=== PATIENT | male | born 1995 | race Caucasian/White ===

== ENCOUNTER 2020-05-10 13:54 | Emergency (ER) | payer OTHER, SELFPAY ==
--- NOTE | 2020-05-10 14:01 | ED.MALEGU ---
HPI - Male Genitourinary General Chief complaint: Urogenital-Male Stated complaint: POSSIBLE BLADDER INFECTION Time Seen by Provider: 05/10/20 14:10 Source: patient and RN notes reviewed Mode of arrival: ambulatory Limitations: no limitations History of Present Illness HPI Narrative: 24 old male presents with concern for possible urinary tract infection, being unable to urinate. Reports he has not urinated since last night. He reports he consulted with his primary care doctor 6 days ago who ordered a urinalysis, he reported the urinalysis was normal and his doctor did not take any further action. He reports for 12 days he had burning at the tip of his penis when he would urinate, itching at the tip of his penis with urination. He reports since Monday he has been having difficulty emptying his bladder. Reports he has not urinated since last night, which is the longest he has gone without urinating. He denies fever, malaise, body aches, chills, bowel problems, hematuria, frequency, urgency. Denies concern for exposure to STIs. Denies scrotal pain, scrotal redness, scrotal swelling. Denies abnormal penile discharge MD Complaint: dysuria and other (Difficulty urinating) Related Data Home Medications Medication Instructions Recorded Confirmed amlodipine 5 mg PO DAILY 05/10/20 05/10/20 levothyroxine [Euthyrox] 50 mcg PO DAILY 05/10/20 05/10/20 valsartan-hydrochlorothiazide 1 tablet PO DAILY 05/10/20 05/10/20 Allergies Allergy/AdvReac Type Severity Reaction Status Date / Time No Known Allergies Verified 05/10/20 14:02 Review of Systems Review of Systems: Narrative: CONSTITUTIONAL: Denies malaise, chills, sweats, or fever. CARDIOVASCULAR: Denies chest pain, current palpitations RESPIRATORY: Denies cough or dyspnea. GASTROINTESTINAL: Denies abdominal pain, nausea, vomiting, diarrhea GENITOURINARY: Denies frequency, urgency, hematuria. Reports the tip of his penis castro when he urinates, reports being unable to urinate since last night SKIN: Reports irritation of the tip of his penis MUSCULOSKELETAL: Denies back pain or myalgia. All systems reviewed & are unremarkable except as noted in HPI and below PMFSH Social History Social History Alcohol intake: never Comments At time of signature, agree with nursing past medical, surgical, social and family history. There is no relevant family history pertinent to the presenting complaint Exam Narrative: Exam Narrative: GENERAL: Well-appearing, well-nourished, and in no acute distress. HEAD: Normocephalic. EYES: PERRLA, conjunctivae clear. NECK: Supple. No lymphadenopathy CHEST: Clear to auscultation. No respiratory distress. HEART: Regular rate and rhythm. No murmur heard. Normal peripheral pulses. ABDOMEN: Soft, nontender upon palpation, nondistended, normal active bowel sounds, no palpable or pulsatile masses, no guarding. No CVA tenderness SKIN: Warm, dry, no rash. NEURO: Alert and oriented x3. PSYCH: Normal mood and affect : General: Yes no CVA tenderness Male General Exam: Yes normal external exam Penis: Yes normal penis and Yes circumcised Meatus: Erythema at meatus Scrotum: scrotum normal Testes: Testes normal Course Course Emergency Course: Discussed with patient options for treatment, including transfer to the emergency room, or attempting straight catheterization to empty bladder and obtain urine sample. Patient consents to straight cath in this clinic. Patient is aware of diagnosis, understands and agrees to treatment plan. Anticipatory guidance given. Patient agrees to follow-up as directed and is aware of reasons to seek care at the emergency department. Portions of this record may have been created with voice recognition software Reevaluation(s) Reevaluation #1: Straight cath successful, discussed with patient negative urinalysis and need to follow-up with his primary care doctor tomorrow. Discussed with patient importance of going to the emergency room i
[2020-05-10 14:07] VITALS: BP 142/84; PULSE 88; RESP 16; TEMP 37.4; O2SAT 99
== END 2020-05-10 14:58 | disposition home or self-care (01) ==
PROVIDERS: Emergency Provider Nurse Practitioner; PCP Family Medicine
DX: R39.198 Other difficulties with micturition (principal); N48.89 Other specified disorders of penis; E78.00 Pure hypercholesterolemia, unspecified; I10 Essential (primary) hypertension
CPT/HCPCS: 51701; 81003; 87086; 99213; G0463

== ENCOUNTER 2020-05-12 15:31 | Emergency (ER) | payer OTHER, SELFPAY ==
[2020-05-12 15:42] VITALS: BP 147/73; PULSE 86; RESP 18; TEMP 36.8; O2SAT 98
[2020-05-12 16:38] LABS: Basophils Absolute Auto 0.1 K/mm3 (0.0-0.1); Basophils Percent Auto 0.5 % (0.2-1.2); Eosinophils Absolute Auto 0.1 K/mm3 (0-0.3); Eosinophils Percent Auto 0.7 % (0-4.4); Hematocrit 39.9 % (42.0-52.0); Hemoglobin 13.3 g/dL (14.0-18.0); Immature Granulocyte Absolute 0.02 K/mm3 (0.00-0.031); Immature Granulocyte Percent A 0.2 % (0-0.5); Immature Platelet Fraction Pct 8.4 % (0.9-11.2); Lymphocytes Absolute Auto 3.39 K/mm3 (0.9-3.2); Lymphocytes Percent Auto 35.9 % (18.3-44.2); Mean Corpuscular HGB Conc 33.3 g/dl (32-36); Mean Corpuscular Hemoglobin 26.9 pg (26-34); Mean Corpuscular Volume 80.8 fl (80-100); Mean Platelet Volume 11.7 fl (7.4-10.4); Monocytes Absolute Auto 0.5 K/mm3 (0.1-0.6); Monocytes Percent Auto 4.9 % (2.6-8.5); Neutrophils Absolute Auto 5.4 K/mm3 (1.3-6.7); Neutrophils Percent Auto 57.8 % (45.5-73.1); Platelet Count Result 177 k/mm3 (150-375); Red Blood Count 4.94 M/mm3 (4.6-6.20); Red Cell Distribution Width 12.8 % (11.5-14.5); White Blood Count 9.4 K/mm3 (4.5-10.0)
[2020-05-12 16:45] LABS: Alanine Aminotransferase 41 U/L (4-50); Albumin Level 4.5 g/dL (3.5-5.1); Alkaline Phosphatase 114 U/L (38-126); Anion Gap 11 mmol/L (8-16); Aspartate Amino Transferase 28 U/L (17-59); Bilirubin,Total 0.5 mg/dL (0.2-1.3); Blood Urea Nitrogen 16 mg/dL (9-20); Calcium 9.2 mg/dL (8.4-10.2); Carbon Dioxide 27 mmol/L (22-30); Chloride 96 mmol/L (98-107); Estimated Glomerular Filt Rate > 60; Glucose 99 mg/dL (75-110); Potassium 3.2 mmol/L (3.4-5.0); Sodium 134 mmol/L (137-145)
--- NOTE | 2020-05-12 16:53 | ED.ABDPAIN ---
HPI - Abdominal Pain General Chief Complaint: Urogenital-Male Stated Complaint: unable to urinate Time Seen by Provider: 05/12/20 15:44 Source: patient Mode of arrival: ambulatory Limitations: no limitations History of Present Illness HPI narrative: Patient is a 24-year-old male who presents to emergency department for evaluation of dysuria that is been present now off and on for the last week and worsened in the last couple of days was seen at urgent care had Escalera catheter placed which was removed after taking out a liter. Patient was then seen by primary care who referred the patient to the emergency department. Patient notes aching pain in the suprapubic region. Patient denies illness STD concern or similar occurrence in the past. Related Data Home Medications Medication Instructions Recorded Confirmed amlodipine 5 mg PO DAILY 05/10/20 05/10/20 levothyroxine [Euthyrox] 50 mcg PO DAILY 05/10/20 05/10/20 valsartan-hydrochlorothiazide 1 tablet PO DAILY 05/10/20 05/10/20 Allergies Allergy/AdvReac Type Severity Reaction Status Date / Time No Known Allergies Verified 05/10/20 14:02 Review of Systems Review of Systems: All systems reviewed & are unremarkable except as noted in HPI and below PMFSH Past Medical History Medical History Hypertension Surgical History Surgical History History of orthopedic surgery Social History Social History Smoking status: Never smoker Alcohol intake: never Exam Narrative: Exam Narrative: GENERAL: Well-appearing, well-nourished, and in no acute distress. HEAD: Normocephalic, atraumatic. EYES: PERRLA and EOMI. ENT: Nares clear, no rhinorrhea or epistaxis. Mucous membranes moist. CHEST: Clear to auscultation. No respiratory distress. No wheezes rales or rhonchi HEART: Regular rate and rhythm. No murmur heard. Normal peripheral pulses. ABDOMEN: Soft, suprapubic tenderness to palpation, nondistended EXTREMITIES: Normal range of motion. No edema. SKIN: Warm, dry, no rash. NEURO: No focal deficits. Alert and oriented x3. Cranial nerves II through XII grossly intact PSYCH: Normal mood and affect. Course Course Emergency Course: Patient in the room aware of case findings treatment plan and diagnosis agreeing to follow-up as directed with urology Escalera catheter was placed patient in retention Vital Signs Vital signs: Vital Signs Temperature 98.3 F 05/12/20 15:42 Pulse Rate 86 05/12/20 15:42 Respiratory Rate 18 05/12/20 15:42 Blood Pressure 147/73 H 05/12/20 15:42 Pulse Oximetry 98 05/12/20 15:42 Temperature 98.3 F 05/12/20 15:42 Pulse Rate 86 05/12/20 15:42 Respiratory Rate 18 05/12/20 15:42 Blood Pressure 147/73 H 05/12/20 15:42 Pulse Oximetry 98 05/12/20 15:42 MDM - Abdominal Pain MDM Narrative Medical decision making narrative: Patient with acute urinary retention in the room in no distress had Escalera catheter placed will have follow-up with urology is afebrile nontoxic-appearing no distress and tolerating the Escalera catheter Lab Data Result diagrams: 05/12/20 16:22 05/12/20 16:22 Labs: Lab Results 05/12/20 05/12/20 05/12/20 Range/Units 16:22 16:22 16:41 WBC 9.4 (4.5-10.0) K/mm3 RBC 4.94 (4.6-6.20) M/mm3 Hgb 13.3 L (14.0-18.0) g/dL Hct 39.9 L (42.0-52.0) % MCV 80.8 (80-100) fl MCH 26.9 (26-34) pg MCHC 33.3 (32-36) g/dl RDW 12.8 (11.5-14.5) % Plt Count 177 (150-375) k/mm3 MPV 11.7 H (7.4-10.4) fl Immature Gran % (Auto) 0.2 (0-0.5) % Neut % (Auto) 57.8 (45.5-73.1) % Lymph % (Auto) 35.9 (18.3-44.2) % [place] % (Auto) 4.9 (2.6-8.5) % Eos % (Auto) 0.7 (0-4.4) % Baso % (Auto) 0.5 (0.2-1.2) % Lymph # (Auto) 3.39 H (0.9-3.2) K/mm3 [place] # (Auto)
[2020-05-12 16:54] LABS: Add Urine Microscopic? NO; Appearance Urine Clear (Clear); Bilirubin Urine Negative (Negative); Blood Urine Negative (Negative); Color Urine Yellow (Yellow); Glucose Urine UA Negative (Negative); Ketones Urine Negative (Negative); Leukocyte Esterase Ur Negative LEU/UL (Negative); Nitrate Urine Negative (Negative); Protein Urine Negative (Negative); Urobilinogen Urine Negative mg/dL (<2.0)
[2020-05-12 17:39] VITALS: BP 138/75; PULSE 78; RESP 16; O2SAT 100
== END 2020-05-12 17:40 | disposition home or self-care (01) ==
PROVIDERS: Emergency Medicine Emergency Medical Services; Emergency Provider Emergency Medicine; PCP Family Medicine
DX: R33.9 Retention of urine, unspecified (principal); I10 Essential (primary) hypertension
CPT/HCPCS: 36415; 51702; 80053; 81003; 85025; 85055; 87491; 87591; 99283

== ENCOUNTER 2021-08-26 20:24 | Emergency (ER) | payer OTHER, SELFPAY ==
--- NOTE | ~2021-08-26 | XR_ITS ---
XR lumbar spine 2-3V 08/26/2021 22:21 Indication: Back pain Procedure: 3 views lumbar spine Comparison: No prior studies for comparison. Findings: There is mild disc narrowing at L5-S1. Vertebral body heights are maintained. Pedicles are intact. Mild levocurvature of the lumbar spine. No evidence for spondylolysis or spondylolisthesis. N o acute fracture or traumatic malalignment. Impression: 1: Mild lower lumbar spondylosis with levoscoliosis. Reviewed, dictated and finalized at location A. ED OPERATOR Impression: 1: Mild lower lumbar spondylosis with levoscoliosis.
--- NOTE | ~2021-08-26 | CT_ITS ---
EXAMINATION: CT lumbar spine wo con DATE: 08/26/2021 23:33 INDICATION: Low back pain TECHNIQUE: Computed tomography (CT) of the lumbar spine was performed without intravenous contrast. T he dose-length product was 1364.66 mGy-cm. Automated exposure control and iterative reconstruction te chnique were employed. COMPARISON: Lumbar spine series dated 08/26/2021 FINDINGS: There is mild disc narrowing at L5-S1 with mild endplate hypertrophy. There is mild left ne ural foraminal encroachment at this level. There is mild annular disc bulging at L3-4 and L4-5 withou t significant spinal stenosis. Vertebral body heights are maintained. No acute fracture or traumatic malalignment. No evidence for spondylolysis or spondylolisthesis. No significant paraspinal soft tiss ue abnormality. IMPRESSION: 1. Mild lumbar spondylosis with left neural foraminal narrowing at L5-S1. Reviewed, dictated and finalized at location A. SHOVELER
[2021-08-26 20:29] VITALS: BP 143/82; PULSE 102; RESP 17; TEMP 36.7; O2SAT 98
[2021-08-26 20:50] VITALS: BP 143/82; PULSE 105; RESP 17; TEMP 36.7; O2SAT 98
--- NOTE | 2021-08-26 21:10 | ED.BACK ---
HPI - Back Pain/Injury General Chief Complaint: Back Pain/Injury Stated Complaint: back pain Time Seen by Provider: 08/26/21 21:09 Source: patient Mode of arrival: EMS Limitations: no limitations History of Present Illness HPI Narrative: Patient is a 25-year-old male with a history of hypertension, hypothyroidism, alopecia, chronic lumbar back pain, presenting for evaluation of acute worsening of lower back pain. Patient states that he stood up from a recliner this afternoon, felt his back gave out upon standing. Patient reports acute onset severe pain which is radiating down bilateral buttocks. He denies any leg weakness or numbness. No saddle anesthesia. No alteration in bowel or bladder function. No urinary or fecal incontinence. Patient has not been able to ambulate secondary to the pain. Pain is aching, throbbing in nature, exacerbated with movement. He denies any middle back or upper neck pain. Patient states in the past he has seen a spine surgeon who stated that they would not do any operation unless patient had changes in his bowel/bladder function. Patient has not undergone any recent physical therapy for his pain. Patient states typically the pain is not that severe. Patient denies any fever, chills, chest pain or abdominal pain. No history of IV drug use. In the past, the patient has taken tramadol with minimal improvement in his symptoms. Related Data Home Medications Medication Instructions Recorded Confirmed amlodipine 5 mg PO DAILY 05/10/20 05/10/20 levothyroxine [Euthyrox] 50 mcg PO DAILY 05/10/20 05/10/20 valsartan-hydrochlorothiazide 1 tablet PO DAILY 05/10/20 05/10/20 Allergies Allergy/AdvReac Type Severity Reaction Status Date / Time No Known Allergies Verified 05/10/20 14:02 Review of Systems Review of Systems: CONSTITUTIONAL: Denies fever CARDIOVASCULAR: Denies chest pain RESPIRATORY: Denies cough or dyspnea. GASTROINTESTINAL: Denies abdominal pain SKIN: Denies rash MUSCULOSKELETAL: Reports lower back pain NEUROLOGIC: Denies headache [facility] Past Medical History Medical History (Updated 08/27/21 @ 00:01 by Enma Madison MD) Hypertension Surgical History Surgical History History of orthopedic surgery Social History Social History Smoking status: Never smoker Alcohol intake: never Exam Narrative: GENERAL: Awake, alert, conversant HEAD: Normocephalic, atraumatic. EYES: PERRLA and EOMI. ENT: Nares clear, no rhinorrhea or epistaxis. Mucous membranes moist. NECK: Supple. CHEST: No respiratory distress, breathing even and non labored HEART: Tachycardic rate, sinus rhythm ABDOMEN:Non distended, non tender EXTREMITIES: No cervical midline or thoracic midline tenderness. Patient does have middle lumbar tenderness without step-offs or deformities. Positive lumbar paraspinal tenderness which reproduces pain. Positive straight leg raise test bilaterally. Intact distal sensation. No hyperreflexia. EHL/FHL intact and normal strength bilaterally. Bilateral lower extremity strength 5/5. SKIN: Warm, dry, no rash. NEURO:No focal deficits. Alert and oriented x3 Course Vital Signs Vital signs: Vital Signs Temperature 36.7 C 08/26/21 20:29 Pulse Rate 102 H 08/26/21 20:29 Respiratory Rate 17 08/26/21 20:29 Blood Pressure 143/82 H 08/26/21 20:29 Pulse Oximetry 98 08/26/21 20:29 Temperature 36.7 C 08/26/21 20:50 Pulse Rate 105 H 08/26/21 20:50 Respiratory Rate 17 08/26/21 20:50 Blood Pressure 143/82 H 08/26/21 20:50 Pulse Oximetry 98 08/26/21 20:50 MDM - Back Pain/Injury MDM Narrative Medical decision making narrative: Given History and Exam the patient appears to be at low risk for Spinal Cord Compression Syndrome, Vertebral Malignancy/Mets, acute Spinal Fracture, Vertebral Osteomyelitis, Epidural Abscess, Infected or Obstructing Kidney Stone.
[2021-08-26] MEDS: ACETAMINOPHEN 500 MG TABLET 1000 MG PO (21:38)
[2021-08-26] MEDS: KETOROLAC (*BKC) 60 MG/2 ML VIAL 30 MG IM (21:38)
[2021-08-26] MEDS: oxyCODONE HCL (*CRX) 5 MG TAB IR PO (21:39)
[2021-08-26] MEDS: predniSONE 20 MG TABLET 60 MG PO (22:04)
[2021-08-26 23:00] VITALS: BP 140/80; PULSE 80; RESP 17; O2SAT 97
--- NOTE | 2021-08-26 23:12 | PC.NURSE ---
Pt ambulated to bathroom with girlfriend. Post void bladder scanner done, showing zero in amount. aware.
[2021-08-27 00:40] VITALS: BP 138/88; PULSE 71; RESP 19; O2SAT 97
== END 2021-08-27 00:40 | disposition home or self-care (01) ==
PROVIDERS: Emergency Provider Emergency Medicine; PCP Family Medicine
DX: S39.012A Strain of muscle, fascia and tendon of lower back, initial encounter (principal); I10 Essential (primary) hypertension; M54.16 Radiculopathy, lumbar region; X50.9XXA Other and unspecified overexertion or strenuous movements or postures, initial encounter
CPT/HCPCS: 72100; 72131; 96372; 99284; A9270; J1885; J7512